=== PATIENT | male | born 1990 | race Caucasian/White ===

== ENCOUNTER 2017-04-23 11:58 | Emergency (ER) | payer BC, OTHER ==
[~2017-04-23] VITALS: Ht 188 cm; Wt 106.0 kg
[~2017-04-23 11:58] MED LIST: AMOX500C3 PO; HYDR-5688 PO
[2017-04-23 12:02] VITALS: BP 164/84; PULSE 73; TEMP 36.7; O2SAT 98; Ht 188 cm; Wt 106.0 kg
[2017-04-23] MEDS ORDERED: OXYC1TAB3 PO (12:28)
[2017-04-23] MEDS ORDERED: AMOX875T PO (12:28)
--- NOTE | 2017-04-23 14:36 | EMERGENCY ROOM VISIT NOTE ---
History First contact with patient: 12:10 Chief Complaint: DENTAL PAIN Stated Complaint: PAIN IN JAW Nursing Triage Summary: Pt presents with pain in left upper jaw, unsure if related to a tooth. Pain began Fri night. States he had a similar pain in the past and "face swelled right up." History of Present Illness The patient is a 26 year old male who presents to the Emergency Room with complaints of left upper dental pain. The patient believes that his teeth are giving him problems. He does have a history of right mandibular teeth extraction last year. He had to go to [place] to have the dental extraction performed. He does have a local dentist, but has not contacted them regarding his current symptoms. He has not noticed any facial edema like he did on his last ER visit. He also denies any difficulty swallowing, fever or chills, and rates his discomfort a 6 out of 10. Review of Systems 10 system review was performed and was negative except for pertinent positives and negatives as indicated in history of present illness Past Medical/Surgical History Medical Problems: (1) No Known Active Medical Problems Family History No pertinent family history Social History Smoking Status: Never Smoker Alcohol Use: occasionally Drug Use: none Marital Status: single Housing Status: lives with family Occupation Status: employed Current/Historical Medications Scheduled Amoxicillin & Pot Clavulanate (Augmentin 875-125 mg), 1 TAB PO BID Scheduled PRN Oxycodone Ir (Roxicodone Ir), 1-2 TAB PO Q4H PRN for Pain Physical Exam Vital Signs Date Time Temp Pulse Resp B/P (MAP) Pulse Ox O2 Delivery O2 Flow Rate FiO2 04/23/17 12:02 36.7 73 16 164/84 98 Room Air Physical Exam CONSTITUTIONAL: Healthy and well nourished. Alert and oriented X 3 with positive affect. HEENT: Normocephalic, atraumatic. Pupils equal, round and reactive. No facial edema noted. Ears and nares are clear. OROPHARYNX: Examination shows very poor left maxillary dentition with several severely eroded molars. No gingival erythema, fluctuance or pointing is noted. LYMPHATICS: No preauricular or cervical chain adenopathy noted. NECK: Full active range of motion without discomfort. INTEGUMENTARY: No rash or other significant dermatologic conditions noted. NEUROLOGIC: Facial sensations are intact. Medical Decision & Procedures ED Course Patient history and physical exam were performed. Nurse's notes were reviewed. Vital signs were reviewed and were normal. The patient was provided prescriptions for Augmentin and OxyIR 5 mg. He was also encouraged to alternate ibuprofen and Tylenol for baseline pain relief. The patient was instructed that he must follow up with his dentist and/or oral surgeon for further management. The patient may also contact his PCP for further management until he can see his dentist. The patient was advised that the emergency department does not provide dental services, referrals or chronic dental pain management. The patient was happy with plan of care, voiced understanding of all discharge instructions, refused any analgesics while in the emergency department, and rated his pain a 6 out of 10 at the time of discharge. Medical Decision [place] Drug Monitoring Program Search Results: patient reviewed within database, no issues identified Medication Reconcilliation Current Medication List: was personally reviewed by me Blood Pressure Screening Patient's blood pressure: Normal blood pressure Impression Primary Impression: Pain due to dental caries Departure Information Dispostion Home / Self-Care Condition GOOD Prescriptions Oxycodone Ir (Roxicodone Ir) 5 Mg Tab 1-2 TAB PO Q4H Y for Pain, #24 TAB For Initial Treatment Prov: Benito Franco PA 04/23/17 Amoxicillin & Pot Clavulanate (Augmentin 875-125 mg) 1 Tab Tab 1 TAB PO BID for 10 Days, #20 TAB Prov: Benito Franco PA 04/23/17 Forms HOME CARE DOCUMENTATION FORM, IMPORTANT VISIT INFORMATION Patient Instructions [facility] Additional Instructions Complete all Augmentin antibiotics as prescribed. Ibuprofen 800 mg and/or Tylenol 1000 mg every 8 hours. You may also alternate these medications for more effective pain relief: Ibuprofen --4 HRS--> Tylenol --4 HRS--> ibuprofen --4 HRS--> Tylenol .... OxyIR if needed for worse pain. Do not drink alcohol or drive while taking OxyIR. You must follow-up with your dentist or oral surgeon for further management. The emergency department does not provide dental services, referrals or chronic dental pain management. You may also follow-up with your PCP as needed for further management until you can see an oral surgeon. Return to the emergency department for any developing facial redness, significant swelling or fever.
== END 2017-04-23 12:35 | disposition home or self-care (01) ==
LOC: C.EDB 12:00 → C.EDD 12:35
DX: K08.89 Other specified disorders of teeth and supporting structures (principal); K02.9 Dental caries, unspecified